=== PATIENT | female | born 1975 | race Two or more races ===

== ENCOUNTER 2017-06-07 06:00 | Day surgery (SDC) | payer OTHER ==
[~2017-06-07 06:00] MED LIST: AMOX1TAB12 PO; ATENOLOL25 MG; CLOBETASOL PROP15 GM TP; FLONASE16 GM NASAL; FLONASE16 GM NS; TENORMIN25 MG; TENORMIN25 MG PO; TUSIORGANIDIN DM PO; ZYRTEC10 MG PO
== END 2017-06-07 11:50 | disposition home or self-care (01) ==
LOC: CIR.AMB 06:00
DX: C54.1 Malignant neoplasm of endometrium (principal)

== ENCOUNTER → 2017-06-24 07:16 | Outpatient (CLI) | payer OTHER | END | disposition home or self-care (01) | LOC: LAB 07:16 | DX: R19.00 Intra-abdominal and pelvic swelling, mass and lump, unspecified site (principal); N94.89 Other specified conditions associated with female genital organs and menstrual cycle ==

== ENCOUNTER 2017-06-26 07:21 | Outpatient (CLI) | payer OTHER | END 2017-06-26 15:31 | disposition home or self-care (01) | LOC: TOM 07:21 | DX: C54.1 Malignant neoplasm of endometrium (principal) ==

== ENCOUNTER 2017-07-02 13:27 | Outpatient (CLI) | payer OTHER | END 2017-07-02 13:28 | disposition home or self-care (01) | LOC: RAD 13:27 | DX: Z01.818 Encounter for other preprocedural examination (principal) ==

== ENCOUNTER 2017-07-05 06:06 | Day surgery (SDC) | payer OTHER | END 2017-07-05 10:35 | disposition home or self-care (01) | LOC: AMB-ENDOS 06:06 | DX: D12.4 Benign neoplasm of descending colon (principal); K62.1 Rectal polyp; K64.1 Second degree hemorrhoids; B34.9 Viral infection, unspecified; M94.0 Chondrocostal junction syndrome [Tietze]; I10 Essential (primary) hypertension; D64.89 Other specified anemias; N84.0 Polyp of corpus uteri; J32.8 Other chronic sinusitis; J34.2 Deviated nasal septum; J34.3 Hypertrophy of nasal turbinates; Z76.0 Encounter for issue of repeat prescription ==

== ENCOUNTER 2017-07-13 07:28 | Outpatient (CLI) | payer OTHER | END 2017-07-13 07:40 | disposition home or self-care (01) | LOC: LAB 07:28 | DX: E78.2 Mixed hyperlipidemia (principal); Z01.818 Encounter for other preprocedural examination; Z00.00 Encounter for general adult medical examination without abnormal findings; I10 Essential (primary) hypertension; E03.8 Other specified hypothyroidism ==

== ENCOUNTER 2017-07-17 09:56 | Inpatient (IN) | payer OTHER ==
[~2017-07-17] VITALS: Ht 165.1 cm; Wt 85.7 kg
[2017-07-24] MEDS ORDERED: Mylicon 125MG PO (07:21)
[2017-07-24] MEDS ORDERED: POLY119PG PO (07:21)
[2017-07-24] MEDS ORDERED: GABAPENTIN600 MG PO (07:21)
[2017-07-24] MEDS ORDERED: IBUPROFEN800 MG PO (07:21)
== END 2017-07-24 09:27 | DRG 743 ==
LOC: EDSTATUS 10:00 → ADM 10:00 → O/R 07-22 05:30 → SURH 07-22 10:00 → OB/GYN 07-22 12:14
PROVIDERS: Obstetrics & Gynecology
PROC: 0UT70ZZ Resection of Bilateral Fallopian Tubes, Open Approach (ICD-10-PCS; 2017-07-22)
PROC: 0UT20ZZ Resection of Bilateral Ovaries, Open Approach (ICD-10-PCS; 2017-07-22)
PROC: 0UT90ZZ Resection of Uterus, Open Approach (ICD-10-PCS; principal; 2017-07-22 11:15)
DX: D25.1 Intramural leiomyoma of uterus (principal); N72 Inflammatory disease of cervix uteri; N85.01 Benign endometrial hyperplasia; N84.0 Polyp of corpus uteri; D64.89 Other specified anemias; C54.1 Malignant neoplasm of endometrium

== ENCOUNTER 2017-08-17 10:25 | Outpatient (CLI) | payer OTHER ==
[~2017-08-17 10:25] MED LIST changes: +ATENOLOL25 GM PO; +FLONASE16 GM; +GABAPENTIN600 MG PO; +IBUPROFEN800 MG PO; +Mylicon 125MG PO; +POLY119PG PO; +ZYRTEC10 MG
== END 2017-08-17 10:33 | disposition home or self-care (01) ==
LOC: LAB 10:25
DX: D64.9 Anemia, unspecified (principal)

== ENCOUNTER 2017-09-04 09:07 | Outpatient (CLI) | payer OTHER | END 2017-09-04 09:23 | disposition home or self-care (01) | LOC: MAMO-SONO 09:07 | DX: N60.11 Diffuse cystic mastopathy of right breast (principal); N60.12 Diffuse cystic mastopathy of left breast; N64.59 Other signs and symptoms in breast; N64.9 Disorder of breast, unspecified; O92.6 Galactorrhea; Z12.31 Encounter for screening mammogram for malignant neoplasm of breast ==

== ENCOUNTER → 2017-09-04 09:35 | Outpatient (CLI) | payer OTHER | END | disposition home or self-care (01) | LOC: LAB 09:35 | DX: E22.1 Hyperprolactinemia (principal) ==

== ENCOUNTER 2017-11-20 22:33 | Emergency (ER) | payer OTHER ==
[~2017-11-20] VITALS: Ht 165.1 cm; Wt 108.9 kg
[2017-11-21] MEDS ORDERED: MECLIZINE HCL25 MG PO (04:13)
== END 2017-11-21 04:30 | disposition home or self-care (01) ==
LOC: ER 22:33
DX: J32.0 Chronic maxillary sinusitis (principal); R42 Dizziness and giddiness

== ENCOUNTER 2017-12-04 07:21 | Outpatient (CLI) | payer OTHER ==
[~2017-12-04] VITALS: Ht 152.4 cm; Wt 83.9 kg
[~2017-12-04 07:21] MED LIST changes: +MECLIZINE HCL25 MG PO
[2017-12-04] MEDS ORDERED: ZITHROMAX500 MG PO (10:39)
[2017-12-04] MEDS ORDERED: AFRIN15 ML NASAL (10:39)
[2017-12-04] MEDS ORDERED: FLONASE16 GM NASAL (10:39)
== END 2017-12-04 07:45 | disposition home or self-care (01) ==
LOC: OFIC 805 07:21
DX: J31.0 Chronic rhinitis (principal); J01.80 Other acute sinusitis; J34.2 Deviated nasal septum; J34.3 Hypertrophy of nasal turbinates; J32.8 Other chronic sinusitis

== ENCOUNTER 2017-12-14 08:05 | Outpatient (CLI) | payer OTHER ==
[~2017-12-14 08:05] MED LIST changes: +AFRIN15 ML NASAL; +ZITHROMAX500 MG PO
== END 2017-12-14 08:10 | disposition home or self-care (01) ==
LOC: LAB 08:05
DX: R30.0 Dysuria (principal); I10 Essential (primary) hypertension; R42 Dizziness and giddiness; R51 Headache

== ENCOUNTER → 2017-12-24 | Outpatient (CLI) | payer OTHER | END | disposition home or self-care (01) | LOC: RAD 12:35 | DX: M54.12 Radiculopathy, cervical region (principal) ==

== ENCOUNTER 2018-05-03 07:38 | Outpatient (CLI) | payer OTHER | END 2018-05-03 07:42 | disposition home or self-care (01) | LOC: LAB 07:38 | DX: Z00.00 Encounter for general adult medical examination without abnormal findings (principal); I10 Essential (primary) hypertension; E03.8 Other specified hypothyroidism; E78.2 Mixed hyperlipidemia; N39.0 Urinary tract infection, site not specified; Z11.4 Encounter for screening for human immunodeficiency virus [HIV]; Z12.11 Encounter for screening for malignant neoplasm of colon; E55.9 Vitamin D deficiency, unspecified; Z21 Asymptomatic human immunodeficiency virus [HIV] infection status; R79.89 Other specified abnormal findings of blood chemistry ==

== ENCOUNTER → 2018-07-11 | Day surgery (SDC) | payer OTHER | END | disposition home or self-care (01) | LOC: ADM 07-08 08:45 → AMB-ENDOS 06:20 | DX: K64.1 Second degree hemorrhoids (principal); Z12.11 Encounter for screening for malignant neoplasm of colon ==

== ENCOUNTER 2018-09-19 07:13 | Outpatient (CLI) | payer OTHER | END 2018-09-19 07:18 | disposition home or self-care (01) | LOC: MAMO-SONO 07:13 | DX: Z12.31 Encounter for screening mammogram for malignant neoplasm of breast (principal) ==

== ENCOUNTER 2018-09-20 07:53 | Outpatient (CLI) | payer OTHER | END 2018-09-20 08:26 | disposition home or self-care (01) | LOC: LAB 07:53 | DX: I10 Essential (primary) hypertension (principal); Z13.1 Encounter for screening for diabetes mellitus; Z12.11 Encounter for screening for malignant neoplasm of colon; E03.8 Other specified hypothyroidism; E55.9 Vitamin D deficiency, unspecified; E78.2 Mixed hyperlipidemia ==

== ENCOUNTER 2018-10-15 08:13 | Outpatient (CLI) | payer OTHER ==
[~2018-10-15] VITALS: Ht 152.4 cm; Wt 83.9 kg
[2018-10-15] MEDS ORDERED: FLONASE16 GM NASAL (11:43)
[2018-10-15] MEDS ORDERED: ZYRTEC10 MG PO (11:43)
== END 2018-10-15 08:30 | disposition home or self-care (01) ==
LOC: OFIC 805 08:13
DX: J32.8 Other chronic sinusitis (principal); J31.0 Chronic rhinitis; J34.2 Deviated nasal septum; J34.3 Hypertrophy of nasal turbinates; H69.90 Unspecified Eustachian tube disorder, unspecified ear

== ENCOUNTER 2018-10-27 14:08 | Outpatient (CLI) | payer OTHER | END 2018-10-27 14:19 | disposition home or self-care (01) | LOC: TOM 14:08 | DX: J32.8 Other chronic sinusitis (principal); J34.2 Deviated nasal septum; J34.3 Hypertrophy of nasal turbinates ==

== ENCOUNTER 2018-11-19 10:50 | Outpatient (CLI) | payer OTHER | END 2018-11-19 11:02 | disposition home or self-care (01) | LOC: NUCLEAR 10:50 | DX: I11.9 Hypertensive heart disease without heart failure (principal) ==

== ENCOUNTER 2018-12-03 07:20 | Outpatient (CLI) | payer OTHER ==
[~2018-12-03] VITALS: Ht 152.4 cm; Wt 81.6 kg
[2018-12-03] MEDS ORDERED: FLONASE16 GM NASAL (09:18)
[2018-12-03] MEDS ORDERED: ZYRTEC10 MG PO (09:18)
== END 2018-12-03 07:40 | disposition home or self-care (01) ==
LOC: OFIC 805 07:20
DX: J32.8 Other chronic sinusitis (principal); J34.3 Hypertrophy of nasal turbinates; J32.9 Chronic sinusitis, unspecified; J34.2 Deviated nasal septum

== ENCOUNTER 2019-01-10 08:45 | Outpatient (CLI) | payer OTHER | END 2019-01-10 09:05 | disposition home or self-care (01) | LOC: LAB 08:45 | DX: N39.0 Urinary tract infection, site not specified (principal) ==

== ENCOUNTER → 2019-03-02 08:16 | Outpatient (CLI) | payer OTHER | END | disposition home or self-care (01) | LOC: LAB 08:16 | DX: D50.8 Other iron deficiency anemias (principal); E03.8 Other specified hypothyroidism; E78.2 Mixed hyperlipidemia; I11.9 Hypertensive heart disease without heart failure; E56.8 Deficiency of other vitamins; N39.0 Urinary tract infection, site not specified; Z12.11 Encounter for screening for malignant neoplasm of colon; E55.9 Vitamin D deficiency, unspecified; N19 Unspecified kidney failure; E11.9 Type 2 diabetes mellitus without complications; R80.8 Other proteinuria; C18.0 Malignant neoplasm of cecum; K92.1 Melena ==

== ENCOUNTER → 2019-05-02 09:02 | Outpatient (CLI) | payer OTHER | END | disposition home or self-care (01) | LOC: LAB 09:02 | DX: J11.1 Influenza due to unidentified influenza virus with other respiratory manifestations (principal) ==

== ENCOUNTER → 2019-05-22 | Outpatient (CLI) | payer OTHER | END | disposition home or self-care (01) | LOC: RAD 13:30 | DX: M54.6 Pain in thoracic spine (principal); M54.5 Low back pain ==

== ENCOUNTER 2019-05-23 07:30 | Outpatient (CLI) | payer OTHER | END 2019-05-23 07:34 | disposition home or self-care (01) | LOC: LAB 07:30 | DX: I10 Essential (primary) hypertension (principal); Z00.00 Encounter for general adult medical examination without abnormal findings; E03.8 Other specified hypothyroidism; E78.00 Pure hypercholesterolemia, unspecified; N39.0 Urinary tract infection, site not specified; Z11.4 Encounter for screening for human immunodeficiency virus [HIV]; Z12.11 Encounter for screening for malignant neoplasm of colon; E55.9 Vitamin D deficiency, unspecified; Z21 Asymptomatic human immunodeficiency virus [HIV] infection status; R79.89 Other specified abnormal findings of blood chemistry ==

== ENCOUNTER → 2019-05-25 13:34 | Outpatient (CLI) | payer OTHER | END | disposition home or self-care (01) | LOC: LAB 13:34 | DX: E03.8 Other specified hypothyroidism (principal); Z00.00 Encounter for general adult medical examination without abnormal findings; I10 Essential (primary) hypertension; E78.00 Pure hypercholesterolemia, unspecified; N39.0 Urinary tract infection, site not specified; Z11.4 Encounter for screening for human immunodeficiency virus [HIV]; Z12.11 Encounter for screening for malignant neoplasm of colon; E55.9 Vitamin D deficiency, unspecified; Z21 Asymptomatic human immunodeficiency virus [HIV] infection status; R79.89 Other specified abnormal findings of blood chemistry ==

== ENCOUNTER 2019-10-12 07:32 | Outpatient (CLI) | payer OTHER | END 2019-10-12 07:43 | disposition home or self-care (01) | LOC: LAB 07:32 | DX: D50.8 Other iron deficiency anemias (principal); E03.8 Other specified hypothyroidism; E78.2 Mixed hyperlipidemia; I11.9 Hypertensive heart disease without heart failure; E56.8 Deficiency of other vitamins; N39.0 Urinary tract infection, site not specified; Z12.11 Encounter for screening for malignant neoplasm of colon; E55.9 Vitamin D deficiency, unspecified; N19 Unspecified kidney failure; E11.9 Type 2 diabetes mellitus without complications; R80.8 Other proteinuria; C18.0 Malignant neoplasm of cecum; K92.1 Melena ==

== ENCOUNTER 2019-10-12 07:50 | Outpatient (CLI) | payer OTHER | END 2019-10-12 15:24 | disposition home or self-care (01) | LOC: MAMO-SONO 07:50 | DX: Z12.31 Encounter for screening mammogram for malignant neoplasm of breast (principal); Z87.898 Personal history of other specified conditions; N64.89 Other specified disorders of breast; N63.10 Unspecified lump in the right breast, unspecified quadrant; N63.20 Unspecified lump in the left breast, unspecified quadrant; N64.59 Other signs and symptoms in breast ==

== ENCOUNTER 2019-10-16 16:20 | Outpatient (CLI) | payer OTHER | END 2019-10-16 16:27 | disposition home or self-care (01) | LOC: LAB 16:20 | DX: E03.8 Other specified hypothyroidism (principal) ==

== ENCOUNTER → 2020-01-28 | Emergency (ER) | payer OTHER ==
[~2020-01-28] VITALS: Ht 165.1 cm; Wt 97.5 kg
[~2020-01-28] MED LIST changes: +CANDESARTAN CILE8 MG PO; +ZOFRAN8 MG PO
== END | disposition home or self-care (01) ==
LOC: ER 08:03
DX: H81.13 Benign paroxysmal vertigo, bilateral (principal)

== ENCOUNTER 2020-02-02 13:00 | Outpatient (CLI) | payer OTHER | END 2020-02-02 14:00 | disposition home or self-care (01) | LOC: PMR → OFIC 805 13:00 → PMR 13:05 → EDSTATUS 13:05 → OFIC 805 13:44 → PMR 13:44 → OFIC 805 14:00 → PMR 02-18 15:46 → OFIC 805 02-18 15:47 | PROVIDERS: ATTEND Otolaryngology | DX: H81.13 Benign paroxysmal vertigo, bilateral (principal); J31.0 Chronic rhinitis; J32.8 Other chronic sinusitis; J34.3 Hypertrophy of nasal turbinates; J34.2 Deviated nasal septum ==

== ENCOUNTER 2020-03-01 08:00 | Outpatient (CLI) | payer OTHER | END 2020-03-01 15:00 | disposition home or self-care (01) | LOC: PPH VACUNA 08:00 | DX: Z23 Encounter for immunization (principal) ==

== ENCOUNTER 2020-03-02 13:49 | Outpatient (CLI) | payer OTHER | END 2020-03-02 15:00 | disposition home or self-care (01) | LOC: LAB 13:49 | DX: Z20.828 Contact with and (suspected) exposure to other viral communicable diseases (principal) ==

== ENCOUNTER → 2020-03-30 | Outpatient (CLI) | payer OTHER | END | disposition home or self-care (01) | LOC: OFIC 805 08:30 | PROVIDERS: ATTEND Otolaryngology | DX: R42 Dizziness and giddiness (principal) ==

== ENCOUNTER → 2020-05-06 06:23 | Outpatient (CLI) | payer OTHER | END | disposition home or self-care (01) | LOC: LAB 06:23 | PROVIDERS: ATTEND Radiology Diagnostic Radiology | DX: R73.09 Other abnormal glucose (principal); Z00.00 Encounter for general adult medical examination without abnormal findings; Z11.4 Encounter for screening for human immunodeficiency virus [HIV] ==

== ENCOUNTER → 2020-06-20 | Outpatient (CLI) | payer OTHER | END | disposition home or self-care (01) | LOC: NUCLEAR 11:40 | PROVIDERS: ATTEND Orthopaedic Surgery | DX: M81.0 Age-related osteoporosis without current pathological fracture (principal) ==

== ENCOUNTER 2020-09-03 07:35 | Outpatient (CLI) | payer OTHER | END 2020-09-03 07:39 | disposition home or self-care (01) | LOC: LAB 07:35 | PROVIDERS: ATTEND General Practice | DX: I11.9 Hypertensive heart disease without heart failure (principal); Z01.812 Encounter for preprocedural laboratory examination; U07.1 COVID-19 ==

== ENCOUNTER 2020-10-11 07:37 | Outpatient (CLI) | payer OTHER | END 2020-10-11 07:44 | disposition home or self-care (01) | LOC: MAMO-SONO 07:37 | PROVIDERS: ATTEND Surgery | DX: N60.11 Diffuse cystic mastopathy of right breast (principal); N60.12 Diffuse cystic mastopathy of left breast ==

== ENCOUNTER 2020-11-19 08:11 | Emergency (ER) | payer OTHER ==
[~2020-11-19] VITALS: Ht 165.1 cm; Wt 102.1 kg
== END 2020-11-19 14:37 | disposition home or self-care (01) ==
LOC: ER 08:11
DX: K29.70 Gastritis, unspecified, without bleeding (principal); R42 Dizziness and giddiness

== ENCOUNTER 2020-12-12 08:43 | Outpatient (CLI) | payer OTHER | END 2020-12-12 13:51 | disposition home or self-care (01) | LOC: LAB 08:43 | PROVIDERS: ATTEND Urology | DX: A51.9 Early syphilis, unspecified (principal) ==

== ENCOUNTER 2021-02-03 11:57 | Outpatient (CLI) | payer OTHER | END 2021-02-03 15:00 | disposition home or self-care (01) | LOC: LAB 11:57 | PROVIDERS: ATTEND Radiology Diagnostic Radiology | DX: N39.0 Urinary tract infection, site not specified (principal) ==

== ENCOUNTER 2021-03-13 08:00 | Outpatient (CLI) | payer OTHER | END 2021-03-13 08:30 | disposition home or self-care (01) | LOC: PPH VACUNA 08:00 | PROVIDERS: ATTEND Emergency Medicine Pediatric Emergency Medicine | DX: Z23 Encounter for immunization (principal) ==

== ENCOUNTER 2021-03-18 07:17 | Outpatient (CLI) | payer OTHER | END 2021-03-18 07:18 | disposition home or self-care (01) | LOC: LAB 07:17 | PROVIDERS: ATTEND General Practice | DX: N39.0 Urinary tract infection, site not specified (principal); I10 Essential (primary) hypertension; R53.1 Weakness; E87.8 Other disorders of electrolyte and fluid balance, not elsewhere classified; Z00.00 Encounter for general adult medical examination without abnormal findings ==

== ENCOUNTER → 2021-05-20 07:26 | Outpatient (CLI) | payer OTHER | END | disposition home or self-care (01) | LOC: LAB 07:26 | PROVIDERS: ATTEND Radiology Diagnostic Radiology | DX: I10 Essential (primary) hypertension (principal); C54.1 Malignant neoplasm of endometrium; E78.49 Other hyperlipidemia; Z11.4 Encounter for screening for human immunodeficiency virus [HIV] ==

== ENCOUNTER 2021-06-08 08:00 | Outpatient (CLI) | payer OTHER | END 2021-06-08 08:30 | disposition home or self-care (01) | LOC: PPH VACUNA 08:00 | PROVIDERS: ATTEND Emergency Medicine Pediatric Emergency Medicine | DX: Z23 Encounter for immunization (principal) ==

== ENCOUNTER 2021-09-13 06:20 | Day surgery (SDC) | payer OTHER | END 2021-09-13 09:15 | disposition home or self-care (01) | LOC: AMB-ENDOS 06:20 | PROVIDERS: ATTEND Colon & Rectal Surgery | DX: K64.1 Second degree hemorrhoids (principal); I10 Essential (primary) hypertension; Z86.010 Personal history of colon polyps ==

== ENCOUNTER 2021-10-16 08:46 | Outpatient (CLI) | payer OTHER | END 2021-10-16 08:49 | disposition home or self-care (01) | LOC: MAMO-SONO 08:46 | PROVIDERS: ATTEND Radiology Diagnostic Radiology | DX: Z12.31 Encounter for screening mammogram for malignant neoplasm of breast (principal) ==

== ENCOUNTER 2021-10-21 13:47 | Outpatient (CLI) | payer OTHER | END 2021-10-21 13:48 | disposition home or self-care (01) | LOC: LAB 13:47 | PROVIDERS: ATTEND Emergency Medicine Pediatric Emergency Medicine | DX: R05.9 Cough, unspecified (principal); R50.9 Fever, unspecified; R06.02 Shortness of breath; Z03.818 Encounter for observation for suspected exposure to other biological agents ruled out; Z20.828 Contact with and (suspected) exposure to other viral communicable diseases ==

== ENCOUNTER 2021-11-04 08:05 | Outpatient (CLI) | payer OTHER | END 2021-11-04 08:14 | disposition home or self-care (01) | LOC: LAB 08:05 | PROVIDERS: ATTEND Radiology Diagnostic Radiology | DX: I10 Essential (primary) hypertension (principal); E03.9 Hypothyroidism, unspecified ==

== ENCOUNTER 2021-11-15 06:54 | Outpatient (CLI) | payer OTHER | END 2021-11-15 07:08 | disposition home or self-care (01) | LOC: LAB 06:54 | PROVIDERS: ATTEND Internal Medicine Geriatric Medicine | DX: M06.9 Rheumatoid arthritis, unspecified (principal); D68.62 Lupus anticoagulant syndrome ==

== ENCOUNTER 2021-11-15 10:31 | Outpatient (CLI) | payer OTHER | END 2021-11-15 10:36 | disposition home or self-care (01) | LOC: RAD 10:31 | PROVIDERS: ATTEND Internal Medicine Geriatric Medicine | DX: M19.90 Unspecified osteoarthritis, unspecified site (principal); M19.071 Primary osteoarthritis, right ankle and foot; M19.072 Primary osteoarthritis, left ankle and foot ==

== ENCOUNTER 2021-11-28 12:24 | Outpatient (CLI) | payer OTHER | END 2021-11-28 12:45 | disposition home or self-care (01) | LOC: NUCLEAR 12:24 | PROVIDERS: ATTEND Internal Medicine Geriatric Medicine | DX: I11.9 Hypertensive heart disease without heart failure (principal) ==

== ENCOUNTER → 2021-12-08 | Emergency (ER) | payer OTHER | END | disposition home or self-care (01) | LOC: ER 16:35 | DX: J02.9 Acute pharyngitis, unspecified (principal); Z20.822 Contact with and (suspected) exposure to COVID-19; I10 Essential (primary) hypertension ==

== ENCOUNTER 2022-02-09 14:13 | Outpatient (CLI) | payer OTHER | END 2022-02-09 14:16 | disposition home or self-care (01) | LOC: SONOGRAMA 14:13 | PROVIDERS: ATTEND Internal Medicine Hematology & Oncology | DX: E04.2 Nontoxic multinodular goiter (principal) ==

== ENCOUNTER 2022-02-10 07:20 | Outpatient (CLI) | payer OTHER | END 2022-02-10 07:22 | disposition home or self-care (01) | LOC: LAB 07:20 | PROVIDERS: ATTEND Internal Medicine Hematology & Oncology | DX: D50.8 Other iron deficiency anemias (principal); R79.9 Abnormal finding of blood chemistry, unspecified; I10 Essential (primary) hypertension; R74.02 Elevation of levels of lactic acid dehydrogenase [LDH]; K76.89 Other specified diseases of liver; D63.8 Anemia in other chronic diseases classified elsewhere; D55.0 Anemia due to glucose-6-phosphate dehydrogenase [G6PD] deficiency; D51.1 Vitamin B12 deficiency anemia due to selective vitamin B12 malabsorption with proteinuria; D51.0 Vitamin B12 deficiency anemia due to intrinsic factor deficiency; E03.8 Other specified hypothyroidism; E06.3 Autoimmune thyroiditis; B17.9 Acute viral hepatitis, unspecified; B20 Human immunodeficiency virus [HIV] disease; C54.1 Malignant neoplasm of endometrium; D51.3 Other dietary vitamin B12 deficiency anemia; D72.818 Other decreased white blood cell count ==

== ENCOUNTER 2022-03-07 08:00 | Outpatient (CLI) | payer OTHER | END 2022-03-07 08:05 | disposition home or self-care (01) | LOC: PPH VACUNA 08:00 | PROVIDERS: ATTEND Emergency Medicine Pediatric Emergency Medicine | DX: Z23 Encounter for immunization (principal) ==

== ENCOUNTER 2022-05-05 07:32 | Outpatient (CLI) | payer OTHER | END 2022-05-05 07:33 | disposition home or self-care (01) | LOC: LAB 07:32 | PROVIDERS: ATTEND Urology | DX: N30.00 Acute cystitis without hematuria (principal) ==

== ENCOUNTER 2022-05-17 09:03 | Outpatient (CLI) | payer OTHER | END 2022-05-17 09:04 | disposition home or self-care (01) | LOC: LAB 09:03 | PROVIDERS: ATTEND Urology | DX: N30.00 Acute cystitis without hematuria (principal) ==

== ENCOUNTER 2022-05-23 07:05 | Outpatient (CLI) | payer OTHER | END 2022-05-23 12:58 | disposition home or self-care (01) | LOC: LAB 07:05 | PROVIDERS: ATTEND Internal Medicine Hematology & Oncology | DX: D50.8 Other iron deficiency anemias (principal); R79.9 Abnormal finding of blood chemistry, unspecified; I10 Essential (primary) hypertension; R74.02 Elevation of levels of lactic acid dehydrogenase [LDH]; K76.89 Other specified diseases of liver; D51.8 Other vitamin B12 deficiency anemias; C54.1 Malignant neoplasm of endometrium; D51.3 Other dietary vitamin B12 deficiency anemia; D72.818 Other decreased white blood cell count ==

== ENCOUNTER 2022-06-06 11:30 | Emergency (ER) | payer OTHER ==
[~2022-06-06] VITALS: Ht 165.1 cm; Wt 102.1 kg
== END 2022-06-06 15:32 | disposition home or self-care (01) ==
LOC: ER 11:30
DX: B34.9 Viral infection, unspecified (principal); R11.0 Nausea; J32.9 Chronic sinusitis, unspecified; R42 Dizziness and giddiness; Z20.822 Contact with and (suspected) exposure to COVID-19

== ENCOUNTER 2022-06-30 08:22 | Outpatient (CLI) | payer OTHER | END 2022-06-30 08:23 | disposition home or self-care (01) | LOC: LAB 08:22 | PROVIDERS: ATTEND Obstetrics & Gynecology | DX: Z00.00 Encounter for general adult medical examination without abnormal findings (principal); I10 Essential (primary) hypertension; E03.9 Hypothyroidism, unspecified; E78.00 Pure hypercholesterolemia, unspecified; N39.0 Urinary tract infection, site not specified; Z11.4 Encounter for screening for human immunodeficiency virus [HIV]; Z12.11 Encounter for screening for malignant neoplasm of colon; E55.9 Vitamin D deficiency, unspecified; Z21 Asymptomatic human immunodeficiency virus [HIV] infection status; R79.9 Abnormal finding of blood chemistry, unspecified; R79.89 Other specified abnormal findings of blood chemistry ==

== ENCOUNTER 2022-08-15 13:24 | Outpatient (CLI) | payer OTHER | END 2022-08-15 14:26 | disposition home or self-care (01) | LOC: LAB 13:24 | PROVIDERS: ATTEND General Practice | DX: R05.8 Other specified cough (principal); R06.02 Shortness of breath; R50.9 Fever, unspecified; Z20.822 Contact with and (suspected) exposure to COVID-19 ==

== ENCOUNTER 2022-09-14 13:12 | Outpatient (CLI) | payer OTHER | END 2022-09-14 13:16 | disposition home or self-care (01) | LOC: NUCLEAR 13:12 | PROVIDERS: ATTEND Obstetrics & Gynecology | DX: N95.1 Menopausal and female climacteric states (principal) ==

== ENCOUNTER → 2022-09-29 07:24 | Outpatient (CLI) | payer OTHER | END | disposition home or self-care (01) | LOC: LAB 07:24 | PROVIDERS: ATTEND Internal Medicine Geriatric Medicine | DX: D50.9 Iron deficiency anemia, unspecified (principal); E03.9 Hypothyroidism, unspecified; E78.2 Mixed hyperlipidemia; I11.9 Hypertensive heart disease without heart failure; E56.8 Deficiency of other vitamins; N39.0 Urinary tract infection, site not specified; Z12.11 Encounter for screening for malignant neoplasm of colon; R19.5 Other fecal abnormalities; E55.9 Vitamin D deficiency, unspecified; N19 Unspecified kidney failure; E11.9 Type 2 diabetes mellitus without complications ==

== ENCOUNTER 2022-10-06 12:29 | Outpatient (CLI) | payer OTHER | END 2022-10-06 12:32 | disposition home or self-care (01) | LOC: LAB 12:29 | PROVIDERS: ATTEND General Practice | DX: N39.0 Urinary tract infection, site not specified (principal) ==

== ENCOUNTER → 2022-10-10 07:11 | Outpatient (CLI) | payer OTHER | END | disposition home or self-care (01) | LOC: LAB 07:11 | PROVIDERS: ATTEND Radiology Diagnostic Radiology | DX: N39.0 Urinary tract infection, site not specified (principal) ==

== ENCOUNTER 2022-10-10 07:48 | Outpatient (CLI) | payer OTHER | END 2022-10-10 07:52 | disposition home or self-care (01) | LOC: SONOGRAMA 07:48 | PROVIDERS: ATTEND Radiology Diagnostic Radiology | DX: N39.0 Urinary tract infection, site not specified (principal) ==

== ENCOUNTER 2022-10-17 07:33 | Outpatient (CLI) | payer OTHER | END 2022-10-17 07:37 | disposition home or self-care (01) | LOC: MAMO-SONO 07:33 | PROVIDERS: ATTEND Obstetrics & Gynecology | DX: N63.0 Unspecified lump in unspecified breast (principal); N64.59 Other signs and symptoms in breast; N64.9 Disorder of breast, unspecified ==

== ENCOUNTER 2022-11-13 07:21 | Outpatient (CLI) | payer OTHER | END 2022-11-13 07:28 | disposition home or self-care (01) | LOC: LAB 07:21 | PROVIDERS: ATTEND Internal Medicine Hematology & Oncology | DX: D50.8 Other iron deficiency anemias (principal); R79.9 Abnormal finding of blood chemistry, unspecified; I10 Essential (primary) hypertension; R74.02 Elevation of levels of lactic acid dehydrogenase [LDH]; K76.89 Other specified diseases of liver; D51.8 Other vitamin B12 deficiency anemias; C50.919 Malignant neoplasm of unspecified site of unspecified female breast; R97.8 Other abnormal tumor markers; C25.9 Malignant neoplasm of pancreas, unspecified; C56.9 Malignant neoplasm of unspecified ovary; R97.1 Elevated cancer antigen 125 [CA 125]; R97.0 Elevated carcinoembryonic antigen [CEA]; C54.1 Malignant neoplasm of endometrium; D51.3 Other dietary vitamin B12 deficiency anemia; D72.818 Other decreased white blood cell count ==

== ENCOUNTER 2023-02-11 14:04 | Emergency (ER) | payer OTHER ==
[~2023-02-11] VITALS: Ht 165.1 cm; Wt 102.1 kg
== END 2023-02-11 17:42 | disposition home or self-care (01) ==
LOC: ER 14:04
PROVIDERS: Nurse Practitioner Family
DX: J10.1 Influenza due to other identified influenza virus with other respiratory manifestations (principal); R09.81 Nasal congestion; Z20.822 Contact with and (suspected) exposure to COVID-19; I10 Essential (primary) hypertension

== ENCOUNTER → 2023-03-29 07:09 | Outpatient (CLI) | payer OTHER ==
[2023-03-29 09:50] LABS: PH,URINE 5.5 (5.0-8.0); URINE APPEARANCE Clear; URINE BILIRRUBIN Negative (NEGATIVE); URINE BLOOD Large; URINE COLOR Yellow; URINE GLUCOSE Negative (NEGATIVE); URINE LEUKOCYTE Negative; URINE NITRATE Negative; URINE PROTEIN Negative (NEGATIVE); URINE UROBILINOGEN 0.2 E.U./dl
[2023-03-29 09:51] LABS: URINE EPITHELIAL CELLS 8.1 uL (0.0-38.8); URINE WBC 4.6 uL (0.0-23.2)
== END | disposition home or self-care (01) ==
LOC: LAB 07:09
PROVIDERS: ATTEND Urology
DX: N30.00 Acute cystitis without hematuria (principal)

== ENCOUNTER 2023-03-30 03:50 | Emergency (ER) | payer OTHER ==
[~2023-03-30] VITALS: Ht 165.1 cm; Wt 104.3 kg
[2023-03-30 06:08] LABS: HEMATOCRIT 40.4 % (36.0-45.00); HEMOGLOBIN 13.6 g/dL (12.0-15.00); MEAN CELL VOLUME 90.1 fL (80.00-100.00); MEAN CORPUSCULAR HEMOGLOBIN 30.3 pg (27.00-32.0); MEAN CORPUSCULAR HGB CONC 33.6 g/dl (32.0-36.0); PLATELET COUNT 215 K/uL (150-450); RED BLOOD COUNT 4.48 M/uL (4.00-6.00); RED CELL DISTRIBUTION WIDTH 14.1 % (11.5-14.5)
[2023-03-30 06:29] LABS: BILIRUBIN TOTAL 0.31 mg/dL (0.3-1.2); CALCIUM 9.3 mg/dL (8.5-10.1); CREATININE SERUM 0.85 mg/dL (0.55-1.02); GLOBULINA 4.5 G/DL (2.4-3.5); POTASSIUM 3.59 mEq/L (3.5-5.1); TOTAL PROTEIN 8.5 gm/dL (6.4-8.2)
[2023-03-30 08:34] LABS: URINE APPEARANCE Clear; URINE BILIRRUBIN Negative (NEGATIVE); URINE BLOOD Large; URINE COLOR Yellow; URINE GLUCOSE Negative (NEGATIVE); URINE LEUKOCYTE Trace; URINE NITRATE Negative; URINE PROTEIN Trace (NEGATIVE); URINE UROBILINOGEN 0.2 E.U./dl
[2023-03-30 08:39] LABS: URINE BACTERIA 798.7 uL (0.0-1933); URINE EPITHELIAL CELLS 69.5 uL (0.0-38.8); URINE RBC 1279.3 uL (0.0-20.8); URINE WBC 38.9 uL (0.0-23.2)
== END 2023-03-30 09:49 | disposition home or self-care (01) ==
LOC: ER 03:50
PROVIDERS: General Practice
DX: N20.1 Calculus of ureter (principal)

== ENCOUNTER 2023-04-11 13:45 | Outpatient (CLI) | payer OTHER | END 2023-04-11 13:55 | disposition home or self-care (01) | LOC: PPH VACUNA 13:45 | PROVIDERS: ATTEND Emergency Medicine Pediatric Emergency Medicine | DX: Z23 Encounter for immunization (principal) | CPT/HCPCS: 90686; G0008 ==

== ENCOUNTER → 2023-04-25 | Outpatient (CLI) | payer OTHER | END | disposition home or self-care (01) | LOC: MAMO-SONO 09:28 | PROVIDERS: ATTEND Radiology Diagnostic Radiology | DX: R92.321 Mammographic fibroglandular density, right breast (principal) ==

== ENCOUNTER 2023-05-17 07:44 | Outpatient (CLI) | payer OTHER ==
[2023-05-17 08:47] LABS: HEMATOCRIT 36.8 % (36.0-45.00); HEMOGLOBIN 12.6 g/dL (12.0-15.00); MEAN CELL VOLUME 89.1 fL (80.00-100.00); MEAN CORPUSCULAR HEMOGLOBIN 30.4 pg (27.00-32.0); MEAN CORPUSCULAR HGB CONC 34.2 g/dl (32.0-36.0); PLATELET COUNT 168 K/uL (150-450); RED BLOOD COUNT 4.14 M/uL (4.00-6.00); RED CELL DISTRIBUTION WIDTH 13.8 % (11.5-14.5)
[2023-05-17 09:15] LABS: ALBUMIN 3.6 gm/dL (3.4-5.0); BILIRUBIN TOTAL 0.49 mg/dL (0.3-1.2); CHOL HDL RATIO 3.5 (0-5.0); CREATININE SERUM 0.66 mg/dL (0.55-1.02); GLOBULINA 3.7 G/DL (2.4-3.5); POTASSIUM 3.54 mEq/L (3.5-5.1); TOTAL PROTEIN 7.3 gm/dL (6.4-8.2); TSH 1.43 uIU/mL (0.358-3.74)
[2023-05-17 09:36] LABS: PH,URINE 5.5 (5.0-8.0); URINE APPEARANCE Clear; URINE BILIRRUBIN Negative (NEGATIVE); URINE BLOOD Negative; URINE COLOR Yellow; URINE GLUCOSE Negative (NEGATIVE); URINE LEUKOCYTE Negative; URINE NITRATE Negative; URINE PROTEIN Negative (NEGATIVE); URINE UROBILINOGEN 0.2 E.U./dl
[2023-05-17 09:39] LABS: URINE BACTERIA 322.4 uL (0.0-1933); URINE EPITHELIAL CELLS 10.5 uL (0.0-38.8); URINE RBC 2.2 uL (0.0-20.8); URINE WBC 7.1 uL (0.0-23.2)
[2023-05-17 12:38] LABS: MANUAL PLATELET COUNT 288
[2023-05-17 12:40] LABS: PLATELET ESTIMATE NORMAL (NORMAL)
[2023-05-17 13:12] LABS: FOLIC ACID 15.46 ng/ml (4.78-20); VITAMIN D3 25 HYDROXY 53.02 ng/ml (30-120)
== END 2023-05-17 07:56 | disposition home or self-care (01) ==
LOC: LAB 07:44
PROVIDERS: ATTEND Internal Medicine Hematology & Oncology
DX: D50.8 Other iron deficiency anemias (principal); R79.9 Abnormal finding of blood chemistry, unspecified; R74.02 Elevation of levels of lactic acid dehydrogenase [LDH]; K76.89 Other specified diseases of liver; E55.9 Vitamin D deficiency, unspecified; C50.919 Malignant neoplasm of unspecified site of unspecified female breast; R97.8 Other abnormal tumor markers; C25.9 Malignant neoplasm of pancreas, unspecified; C56.9 Malignant neoplasm of unspecified ovary; R97.1 Elevated cancer antigen 125 [CA 125]; R97.0 Elevated carcinoembryonic antigen [CEA]; C54.1 Malignant neoplasm of endometrium; D51.3 Other dietary vitamin B12 deficiency anemia; D72.818 Other decreased white blood cell count; D50.9 Iron deficiency anemia, unspecified; E03.9 Hypothyroidism, unspecified; E78.2 Mixed hyperlipidemia; I11.9 Hypertensive heart disease without heart failure; E56.8 Deficiency of other vitamins; N39.0 Urinary tract infection, site not specified; Z12.11 Encounter for screening for malignant neoplasm of colon; R19.5 Other fecal abnormalities; N19 Unspecified kidney failure; E11.9 Type 2 diabetes mellitus without complications

== ENCOUNTER → 2023-05-25 | Outpatient (CLI) | payer OTHER | END | disposition home or self-care (01) | LOC: RAD 09:38 | PROVIDERS: ATTEND Internal Medicine Hematology & Oncology | DX: C54.1 Malignant neoplasm of endometrium (principal); M54.59 Other low back pain; D51.3 Other dietary vitamin B12 deficiency anemia; I10 Essential (primary) hypertension; D72.818 Other decreased white blood cell count ==

== ENCOUNTER 2023-07-27 16:26 | Emergency (ER) | payer OTHER ==
[~2023-07-27] VITALS: Ht 162.6 cm; Wt 104.3 kg
[2023-07-27] MEDS ORDERED: KETOROLAC TROMETHAMINE 60 MG VIAL IM ONE (18:15)
[2023-07-27 19:29] LABS: PH,URINE 5.5 (5.0-8.0); URINE APPEARANCE Cloudy; URINE BILIRRUBIN Negative (NEGATIVE); URINE BLOOD Moderate; URINE COLOR Yellow; URINE GLUCOSE Negative (NEGATIVE); URINE LEUKOCYTE Large; URINE NITRATE Negative; URINE PROTEIN 30 (NEGATIVE); URINE UROBILINOGEN 0.2 E.U./dl
[2023-07-27 19:31] LABS: HEMATOCRIT 38.5 % (36.0-45.00); HEMOGLOBIN 13.2 g/dL (12.0-15.00); MEAN CORPUSCULAR HEMOGLOBIN 30.5 pg (27.00-32.0); MEAN CORPUSCULAR HGB CONC 34.3 g/dl (32.0-36.0); PLATELET COUNT 193 K/uL (150-450); RED BLOOD COUNT 4.32 M/uL (4.00-6.00); RED CELL DISTRIBUTION WIDTH 14.1 % (11.5-14.5)
[2023-07-27 19:33] LABS: URINE EPITHELIAL CELLS 5.1 uL (0.0-38.8); URINE RBC 199.1 uL (0.0-20.8); URINE WBC 2106.9 uL (0.0-23.2)
[2023-07-27 19:51] LABS: URINE BACTERIA > 9821.5 uL (0.0-1933)
[2023-07-27 20:33] LABS: BILIRUBIN TOTAL 0.62 mg/dL (0.3-1.2); CALCIUM 9.9 mg/dL (8.5-10.1); CREATININE SERUM 0.78 mg/dL (0.55-1.02); GFR 79.16; GLOBULINA 3.9 G/DL (2.4-3.5); POTASSIUM 3.94 mEq/L (3.5-5.1); TOTAL PROTEIN 7.9 gm/dL (6.4-8.2)
[2023-07-27] MEDS ORDERED: CEFTRIAXONE SODIUM 1,000 MG VIAL IM ONE (20:45)
== END 2023-07-27 21:14 | disposition home or self-care (01) ==
LOC: ER 16:26
PROVIDERS: General Practice
DX: N39.0 Urinary tract infection, site not specified (principal); R31.9 Hematuria, unspecified; Z20.822 Contact with and (suspected) exposure to COVID-19

== ENCOUNTER → 2024-01-25 15:14 | Outpatient (CLI) | payer OTHER ==
[2024-01-25 09:36] LABS: PH,URINE 5.5 (5.0-8.0); URINE APPEARANCE Clear; URINE BILIRRUBIN Negative (NEGATIVE); URINE BLOOD Negative; URINE COLOR Yellow; URINE GLUCOSE Negative (NEGATIVE); URINE KETONE Negative (NEGATIVE); URINE LEUKOCYTE Negative; URINE NITRATE Negative; URINE PROTEIN Negative (NEGATIVE); URINE UROBILINOGEN 0.2 E.U./dl
[2024-01-25 09:37] LABS: URINE BACTERIA 60.4 uL (0.0-1933); URINE EPITHELIAL CELLS 10.9 uL (0.0-38.8); URINE RBC 3.9 uL (0.0-20.8); URINE WBC 5.7 uL (0.0-23.2)
[2024-01-25 09:52] LABS: HEMATOCRIT 36.7 % (36.0-45.00); HEMOGLOBIN 12.6 g/dL (12.0-15.00); MEAN CELL VOLUME 89.1 fL (80.00-100.00); MEAN CORPUSCULAR HEMOGLOBIN 30.5 pg (27.00-32.0); MEAN CORPUSCULAR HGB CONC 34.3 g/dl (32.0-36.0); PLATELET COUNT 172 K/uL (150-450); RED BLOOD COUNT 4.12 M/uL (4.00-6.00); RED CELL DISTRIBUTION WIDTH 13.8 % (11.5-14.5)
[2024-01-25 10:17] LABS: ALBUMIN 3.8 gm/dL (3.4-5.0); BILIRUBIN TOTAL 0.4 mg/dL (0.3-1.2); CALCIUM 8.9 mg/dL (8.5-10.1); CHOL HDL RATIO 3.8 (0-5.0); CREATININE SERUM 0.64 mg/dL (0.55-1.02); GFR 99.47; GLOBULINA 3.5 G/DL (2.4-3.5); POTASSIUM 3.8 mEq/L (3.5-5.1); T4 FREE 0.89 NG/ML (0.76-1.46); TOTAL PROTEIN 7.3 gm/dL (6.4-8.2); TSH 1.47 uIU/mL (0.358-3.74)
== END | disposition home or self-care (01) ==
LOC: LAB 10:06
PROVIDERS: ATTEND Obstetrics & Gynecology
DX: N39.0 Urinary tract infection, site not specified (principal); I10 Essential (primary) hypertension; E78.00 Pure hypercholesterolemia, unspecified; Z00.00 Encounter for general adult medical examination without abnormal findings; Z11.4 Encounter for screening for human immunodeficiency virus [HIV]; E55.9 Vitamin D deficiency, unspecified; Z12.11 Encounter for screening for malignant neoplasm of colon; Z21 Asymptomatic human immunodeficiency virus [HIV] infection status; R79.9 Abnormal finding of blood chemistry, unspecified; R79.89 Other specified abnormal findings of blood chemistry

== ENCOUNTER 2024-02-03 10:46 | Outpatient (CLI) | payer OTHER ==
[2024-02-03 19:37] LABS: ob NEGATIVE (NEGATIVE)
== END 2024-02-03 15:12 | disposition home or self-care (01) ==
LOC: LAB 10:46
PROVIDERS: ATTEND Obstetrics & Gynecology
DX: N39.0 Urinary tract infection, site not specified (principal); E03.9 Hypothyroidism, unspecified; E78.00 Pure hypercholesterolemia, unspecified; Z00.00 Encounter for general adult medical examination without abnormal findings; I10 Essential (primary) hypertension; Z11.4 Encounter for screening for human immunodeficiency virus [HIV]; Z12.11 Encounter for screening for malignant neoplasm of colon; Z21 Asymptomatic human immunodeficiency virus [HIV] infection status; R79.9 Abnormal finding of blood chemistry, unspecified; R79.89 Other specified abnormal findings of blood chemistry

== ENCOUNTER 2024-02-07 08:58 | Outpatient (CLI) | payer OTHER | END 2024-02-07 09:10 | disposition home or self-care (01) | LOC: LAB 08:58 | PROVIDERS: ATTEND Preventive Medicine Occupational Medicine | DX: I10 Essential (primary) hypertension (principal); B19.10 Unspecified viral hepatitis B without hepatic coma; C54.1 Malignant neoplasm of endometrium; D51.3 Other dietary vitamin B12 deficiency anemia; D72.818 Other decreased white blood cell count; M54.50 Low back pain, unspecified; E21.0 Primary hyperparathyroidism ==

== ENCOUNTER 2024-02-07 09:03 | Outpatient (CLI) | payer OTHER ==
[2024-02-07 11:14] LABS: CREATININE SERUM 0.63 mg/dL (0.55-1.02)
== END 2024-02-07 09:11 | disposition home or self-care (01) ==
LOC: LAB 09:03
PROVIDERS: ATTEND Internal Medicine Hematology & Oncology
DX: C54.1 Malignant neoplasm of endometrium (principal); D51.3 Other dietary vitamin B12 deficiency anemia; I10 Essential (primary) hypertension; D72.818 Other decreased white blood cell count; M54.50 Low back pain, unspecified; E21.0 Primary hyperparathyroidism

== ENCOUNTER 2024-02-20 07:17 | Outpatient (CLI) | payer OTHER | END 2024-02-20 07:19 | disposition home or self-care (01) | LOC: NUCLEAR 07:17 | PROVIDERS: ATTEND Internal Medicine Hematology & Oncology | DX: D53.1 Other megaloblastic anemias, not elsewhere classified (principal); C54.1 Malignant neoplasm of endometrium; I10 Essential (primary) hypertension; D72.818 Other decreased white blood cell count; E21.0 Primary hyperparathyroidism ==

== ENCOUNTER 2024-03-06 06:55 | Outpatient (CLI) | payer OTHER ==
[2024-03-06 07:49] LABS: HEMATOCRIT 36.2 % (36.0-45.00); HEMOGLOBIN 12.5 g/dL (12.0-15.00); MEAN CELL VOLUME 88.3 fL (80.00-100.00); MEAN CORPUSCULAR HEMOGLOBIN 30.5 pg (27.00-32.0); MEAN CORPUSCULAR HGB CONC 34.6 g/dl (32.0-36.0); PLATELET COUNT 190 K/uL (150-450); RED CELL DISTRIBUTION WIDTH 14.1 % (11.5-14.5)
[2024-03-06 08:34] LABS: ALBUMIN 3.6 gm/dL (3.4-5.0); BILIRUBIN TOTAL 0.32 mg/dL (0.3-1.2); CREATININE SERUM 0.62 mg/dL (0.55-1.02); GFR 103.18; GLOBULINA 3.6 G/DL (2.4-3.5); POTASSIUM 4.06 mEq/L (3.5-5.1); T4 FREE 0.85 NG/ML (0.76-1.46); TOTAL PROTEIN 7.2 gm/dL (6.4-8.2); TSH 1.44 uIU/mL (0.358-3.74)
[2024-03-06 08:44] LABS: MANUAL PLATELET COUNT 250; PLATELET ESTIMATE NORMAL (NORMAL)
[2024-03-06 13:10] LABS: FOLIC ACID 16.61 ng/ml (4.78-20)
[2024-03-07 09:07] LABS: CA 125 5.3 U/mL (0.0-38.1); CA 15-3 18.4 U/mL (0.0-25.0)
== END 2024-03-06 06:57 | disposition home or self-care (01) ==
LOC: LAB 06:55
PROVIDERS: ATTEND Internal Medicine Hematology & Oncology
DX: C54.1 Malignant neoplasm of endometrium (principal); D51.3 Other dietary vitamin B12 deficiency anemia; I10 Essential (primary) hypertension; D72.818 Other decreased white blood cell count; M54.50 Low back pain, unspecified; E21.0 Primary hyperparathyroidism

== ENCOUNTER 2024-04-17 02:30 | Outpatient (CLI) | payer OTHER | END 2024-04-17 03:00 | disposition home or self-care (01) | LOC: PPH VACUNA 02:30 | PROVIDERS: ATTEND Emergency Medicine Pediatric Emergency Medicine | DX: Z23 Encounter for immunization (principal) ==

== ENCOUNTER 2024-05-19 13:37 | Outpatient (CLI) | payer OTHER | END 2024-05-19 13:39 | disposition home or self-care (01) | LOC: RAD 13:37 | DX: M99.01 Segmental and somatic dysfunction of cervical region (principal) ==

== ENCOUNTER 2024-06-25 08:37 | Outpatient (CLI) | payer OTHER | END 2024-06-25 09:00 | disposition home or self-care (01) | LOC: SONOGRAMA 08:37 | PROVIDERS: ATTEND Radiology Diagnostic Radiology | DX: M25.571 Pain in right ankle and joints of right foot (principal) ==

== ENCOUNTER 2024-08-14 07:38 | Emergency (ER) | payer OTHER ==
[~2024-08-14] VITALS: Ht 165.1 cm; Wt 104.3 kg
[2024-08-14] MEDS ORDERED: DEXAMETHASONE SODIUM PHOSPHATE 4 MG/ML VIAL IM STA (11:57)
[2024-08-14] MEDS ORDERED: DEXAMETHASONE SODIUM PHOSPHATE 4 MG/ML VIAL ONE (12:09)
== END 2024-08-14 12:15 | disposition home or self-care (01) ==
LOC: ER 07:40
DX: B34.9 Viral infection, unspecified (principal)

== ENCOUNTER 2024-08-31 06:58 | Outpatient (CLI) | payer OTHER ==
[2024-08-31 07:42] LABS: HEMATOCRIT 35.4 % (36.0-45.00); HEMOGLOBIN 12.3 g/dL (12.0-15.00); MEAN CELL VOLUME 89.1 fL (80.00-100.00); MEAN CORPUSCULAR HGB CONC 34.8 g/dl (32.0-36.0); PLATELET COUNT 167 K/uL (150-450); RED BLOOD COUNT 3.98 M/uL (4.00-6.00); RED CELL DISTRIBUTION WIDTH 13.9 % (11.5-14.5)
[2024-08-31 08:57] LABS: ALBUMIN 3.8 gm/dL (3.4-5.0); BILIRUBIN TOTAL 0.32 mg/dL (0.3-1.2); CALCIUM 9.2 mg/dL (8.5-10.1); CHOL HDL RATIO 3.6 (0-5.0); CREATININE SERUM 0.66 mg/dL (0.55-1.02); GFR 95.59; GLOBULINA 3.3 G/DL (2.4-3.5); POTASSIUM 3.9 mEq/L (3.5-5.1); T4 TOTAL 6.57 UG/DL (4.8-13.9); TOTAL PROTEIN 7.1 gm/dL (6.4-8.2)
[2024-08-31 10:43] LABS: PH,URINE 5.5 (5.0-8.0); URINE APPEARANCE Clear; URINE BILIRRUBIN Negative (NEGATIVE); URINE BLOOD Negative; URINE COLOR Yellow; URINE GLUCOSE Negative (NEGATIVE); URINE KETONE Negative (NEGATIVE); URINE LEUKOCYTE Trace; URINE NITRATE Negative; URINE PROTEIN Negative (NEGATIVE); URINE UROBILINOGEN 0.2 E.U./dl
[2024-08-31 10:44] LABS: URINE EPITHELIAL CELLS 48.7 uL (0.0-38.8); URINE RBC 46.5 uL (0.0-20.8); URINE WBC 34.6 uL (0.0-23.2)
[2024-08-31 10:59] LABS: URINE CAST 0.14 uL (0.0-1.40); URINE MUCUS MODERATE
[2024-08-31 11:02] LABS: FOLIC ACID 16.68 ng/ml (4.78-20); T3 TOTAL 1.28 ng/ml (0.846-2.02); VITAMIN D3 25 HYDROXY 68.13 ng/ml (30-120)
[2024-09-01 09:51] LABS: MANUAL PLATELET COUNT 328
[2024-09-01 09:52] LABS: PLATELET ESTIMATE NORMAL (NORMAL)
[2024-09-01 11:50] LABS: CA 125 5.4 U/mL (0.0-38.1); CA 15-3 17.4 U/mL (0.0-25.0)
== END 2024-08-31 07:00 | disposition home or self-care (01) ==
LOC: LAB 06:58
PROVIDERS: ATTEND Internal Medicine Hematology & Oncology
DX: C54.1 Malignant neoplasm of endometrium (principal); D51.3 Other dietary vitamin B12 deficiency anemia; I10 Essential (primary) hypertension; D72.818 Other decreased white blood cell count; M54.50 Low back pain, unspecified; E21.0 Primary hyperparathyroidism; D50.8 Other iron deficiency anemias; R79.9 Abnormal finding of blood chemistry, unspecified; R74.02 Elevation of levels of lactic acid dehydrogenase [LDH]; K76.89 Other specified diseases of liver; D51.8 Other vitamin B12 deficiency anemias; E55.9 Vitamin D deficiency, unspecified; C50.919 Malignant neoplasm of unspecified site of unspecified female breast; R97.0 Elevated carcinoembryonic antigen [CEA]

== ENCOUNTER 2024-09-02 08:30 | Outpatient (CLI) | payer OTHER | END 2024-09-02 08:36 | disposition home or self-care (01) | LOC: SONOGRAMA 08:30 | PROVIDERS: ATTEND Radiology Diagnostic Radiology | DX: M25.511 Pain in right shoulder (principal); M25.521 Pain in right elbow ==

== ENCOUNTER 2024-09-15 13:33 | Outpatient (CLI) | payer OTHER | END 2024-09-15 13:36 | disposition home or self-care (01) | LOC: RAD 13:33 | PROVIDERS: ATTEND Physical Medicine & Rehabilitation | DX: M17.12 Unilateral primary osteoarthritis, left knee (principal) ==

== ENCOUNTER → 2024-09-15 13:39 | Outpatient (CLI) | payer OTHER | END | disposition home or self-care (01) | LOC: LAB 13:39 | PROVIDERS: ATTEND Physical Medicine & Rehabilitation | DX: M06.9 Rheumatoid arthritis, unspecified (principal); M13.0 Polyarthritis, unspecified ==

== ENCOUNTER 2025-01-29 08:20 | Outpatient (CLI) | payer OTHER ==
[2025-01-30 07:07] LABS: HEPATITIS A ANTIBODY IGG Negative (Negative); HEPATITIS B SURFACE ANTIBODY Reactive (.); HEPATITIS C VIRUS ANTIBODY Non Reactive (Non Reactive)
== END 2025-01-29 13:28 | disposition home or self-care (01) ==
LOC: LAB 08:20
PROVIDERS: ATTEND Radiology Diagnostic Radiology
DX: Z02.79 Encounter for issue of other medical certificate (principal)

== ENCOUNTER 2025-02-01 07:50 | Outpatient (CLI) | payer OTHER | END 2025-02-01 07:52 | disposition home or self-care (01) | LOC: TOM 07:50 | PROVIDERS: ATTEND Otolaryngology | DX: J32.0 Chronic maxillary sinusitis (principal); J30.9 Allergic rhinitis, unspecified ==

== ENCOUNTER → 2025-02-17 06:34 | Outpatient (CLI) | payer OTHER ==
[2025-02-17 07:46] LABS: BASO % 0.6 % (0.1-1.2); EOS # 0.16 (0.04-0.54); EOS % 3.2 % (0.7-7.0); LYMPH # 1.93 (1.18-3.74); LYMPH % 38.4 % (19.3-53.1); MEAN PLATELET VOLUME 10.60 fl (9.4-12.4); MONO # 0.31 (0.24-0.82); MONO % 6.2 % (4.7-12.5); NEUT # 2.58 (1.56-6.13); NEUT % 51.4 % (34.0-71.1); RED CELL DISTRIBUTION WIDTH 12.8 % (11.6-14.4)
[2025-02-17 08:54] LABS: ALT/SGPT 41.0 U/L (12-78); AST/SGOT 18.0 U/L (15-37); BILIRUBIN TOTAL 0.37 mg/dL (0.3-1.2); BUN CREA RATIO 29.0 (7.0-25.0); CHOL HDL RATIO 3.6 (0-5.0); CREATININE SERUM 0.59 mg/dL (0.55-1.02); GFR 108.79; GLOBULINA 3.5 G/DL (2.4-3.5); GLUCOSE FASTING 89.0 mg/dL (65-100); HDL 50.0 mg/dl (40-60); LDL 106.0 mg/dl (0-130); OSMOLALITY SERUM 288.0 MOSM/KG (275-295); T4 TOTAL 7.54 UG/DL (4.8-13.9); VLDL 24.0 (0-39)
[2025-02-17 09:08] LABS: URINE APPEARANCE Clear; URINE BILIRRUBIN Negative (NEGATIVE); URINE BLOOD Negative; URINE COLOR Yellow; URINE GLUCOSE Negative (NEGATIVE); URINE KETONE Negative (NEGATIVE); URINE LEUKOCYTE Trace; URINE NITRATE Negative; URINE PROTEIN Negative (NEGATIVE); URINE UROBILINOGEN 0.2 E.U./dl
[2025-02-17 09:13] LABS: URINE BACTERIA 271.1 uL (0.0-1933); URINE EPITHELIAL CELLS 25.3 uL (0.0-38.8); URINE RBC 13.9 uL (0.0-20.8); URINE WBC 25.3 uL (0.0-23.2)
[2025-02-17 09:14] LABS: URINE CAST 0.00 uL (0.0-1.40)
[2025-02-17 12:59] LABS: T3 TOTAL 1.32 ng/ml (0.846-2.02); VITAMIN D3 25 HYDROXY 56.72 ng/ml (30-120)
== END | disposition home or self-care (01) ==
LOC: LAB 06:34
PROVIDERS: ATTEND Orthopaedic Surgery
DX: Z01.818 Encounter for other preprocedural examination (principal)

== ENCOUNTER 2025-03-31 06:38 | Outpatient (CLI) | payer OTHER ==
[2025-03-31 07:14] LABS: BASO % 1.2 % (0.1-1.2); EOS # 0.12 (0.04-0.54); EOS % 2.9 % (0.7-7.0); LYMPH # 1.73 (1.18-3.74); LYMPH % 41.5 % (19.3-53.1); MEAN PLATELET VOLUME 10.70 fl (9.4-12.4); MONO # 0.25 (0.24-0.82); MONO % 6.0 % (4.7-12.5); NEUT # 2.01 (1.56-6.13); NEUT % 48.2 % (34.0-71.1); RED CELL DISTRIBUTION WIDTH 12.8 % (11.6-14.4)
[2025-03-31 08:22] LABS: ALT/SGPT 39.0 U/L (12-78); AST/SGOT 17.0 U/L (15-37); BILIRUBIN TOTAL 0.4 mg/dL (0.3-1.2); BUN CREA RATIO 20.0 (7.0-25.0); CREATININE SERUM 0.75 mg/dL (0.55-1.02); FE 69.0 ug/dl (50-170); GFR 82.48; GLOBULINA 3.1 G/DL (2.4-3.5); GLUCOSE FASTING 103.0 mg/dL (65-100); LDH 200.0 U/L (84-246); OSMOLALITY SERUM 288.0 MOSM/KG (275-295); T4 FREE 0.88 NG/ML (0.76-1.46); TSH 1.86 uIU/mL (0.358-3.74)
[2025-03-31 13:47] LABS: FOLIC ACID 13.58 ng/ml (4.78-20); VITAMIN D3 25 HYDROXY 50.65 ng/ml (30-120)
[2025-04-02 05:06] LABS: CA 125 6.1 U/mL (0.0-38.1); CA 15-3 18.5 U/mL (0.0-25.0)
[2025-04-02 13:12] LABS: CALCIUM IONIZED 5.0 mg/dL (4.5-5.6)
== END 2025-03-31 06:41 | disposition home or self-care (01) ==
LOC: LAB 06:38
PROVIDERS: ATTEND Internal Medicine Hematology & Oncology
DX: D50.8 Other iron deficiency anemias (principal); C54.1 Malignant neoplasm of endometrium; D51.3 Other dietary vitamin B12 deficiency anemia; I10 Essential (primary) hypertension; M54.50 Low back pain, unspecified; E21.0 Primary hyperparathyroidism; R79.9 Abnormal finding of blood chemistry, unspecified; R74.02 Elevation of levels of lactic acid dehydrogenase [LDH]; K76.89 Other specified diseases of liver; E55.9 Vitamin D deficiency, unspecified; Z13.29 Encounter for screening for other suspected endocrine disorder; C56.9 Malignant neoplasm of unspecified ovary; E03.8 Other specified hypothyroidism

== ENCOUNTER 2025-04-22 14:00 | Outpatient (CLI) | payer OTHER | END 2025-04-22 14:10 | disposition home or self-care (01) | LOC: PPH VACUNA 14:00 | PROVIDERS: ATTEND Emergency Medicine Pediatric Emergency Medicine | DX: Z23 Encounter for immunization (principal) ==

== ENCOUNTER 2025-05-03 06:41 | Outpatient (CLI) | payer OTHER ==
[2025-05-03 07:50] LABS: BASO % 0.8 % (0.1-1.2); EOS # 0.16 (0.04-0.54); EOS % 3.3 % (0.7-7.0); LYMPH # 1.86 (1.18-3.74); LYMPH % 38.5 % (19.3-53.1); MEAN PLATELET VOLUME 10.50 fl (9.4-12.4); MONO # 0.34 (0.24-0.82); MONO % 7.0 % (4.7-12.5); NEUT # 2.41 (1.56-6.13); NEUT % 50.0 % (34.0-71.1); RED CELL DISTRIBUTION WIDTH 13.0 % (11.6-14.4)
[2025-05-03 09:35] LABS: ALT/SGPT 47.0 U/L (12-78); AST/SGOT 21.0 U/L (15-37); BILIRUBIN TOTAL 0.4 mg/dL (0.3-1.2); BUN CREA RATIO 28.0 (7.0-25.0); CHOL HDL RATIO 3.3 (0-5.0); CREATININE SERUM 0.65 mg/dL (0.55-1.02); GFR 97.28; GLOBULINA 3.5 G/DL (2.4-3.5); GLUCOSE FASTING 99.0 mg/dL (65-100); HDL 58.0 mg/dl (40-60); LDL 113.0 mg/dl (0-130); OSMOLALITY SERUM 289.0 MOSM/KG (275-295); TSH 2.21 uIU/mL (0.358-3.74); VLDL 20.0 (0-39)
[2025-05-03 09:37] LABS: URINE APPEARANCE Clear; URINE BILIRRUBIN Negative (NEGATIVE); URINE BLOOD Negative; URINE COLOR Yellow; URINE GLUCOSE Negative (NEGATIVE); URINE KETONE Negative (NEGATIVE); URINE LEUKOCYTE Moderate; URINE NITRATE Negative; URINE PROTEIN Negative (NEGATIVE); URINE UROBILINOGEN 0.2 E.U./dl
[2025-05-03 09:40] LABS: URINE BACTERIA 1032.0 uL (0.0-1933); URINE EPITHELIAL CELLS 11.2 uL (0.0-38.8); URINE RBC 12.6 uL (0.0-20.8); URINE WBC 493.8 uL (0.0-23.2)
[2025-05-03 10:38] LABS: URINE CAST 0.29 uL (0.0-1.40)
== END 2025-05-03 06:44 | disposition home or self-care (01) ==
LOC: LAB 06:41
PROVIDERS: ATTEND Internal Medicine Geriatric Medicine
DX: D50.9 Iron deficiency anemia, unspecified (principal); E03.9 Hypothyroidism, unspecified; E78.2 Mixed hyperlipidemia; I11.9 Hypertensive heart disease without heart failure; E56.8 Deficiency of other vitamins; N39.0 Urinary tract infection, site not specified; Z12.11 Encounter for screening for malignant neoplasm of colon; R19.5 Other fecal abnormalities; E55.9 Vitamin D deficiency, unspecified; N19 Unspecified kidney failure; E11.9 Type 2 diabetes mellitus without complications; R80.9 Proteinuria, unspecified; C18.9 Malignant neoplasm of colon, unspecified; K92.1 Melena; N18.31 Chronic kidney disease, stage 3a